=== PATIENT | male | born 1940 | race Native Hawaiian/Other Pacific Islander ===

== ENCOUNTER 2018-08-24 10:37 | Inpatient (IN) | payer OTHER, BC ==
[~2018-08-24] VITALS: Ht 190.5 cm; Wt 92.6 kg
[2018-08-24] VITALS (12 sets, daily range): BP systolic 131–182; BP diastolic 63–97; TEMP 97.5–98.5; Ht 190.5 cm; Wt 92.6 kg
[2018-08-24] MEDS ORDERED: ATEN25TA21 PO (11:00)
[2018-08-24] MEDS ORDERED: ALPR0.5T24 PO (11:00)
[2018-08-24 11:45] LABS: POTASSIUM 4.2 mmol/L (3.6-5.2)
[2018-08-24 11:47] LABS: PLATELET COUNT 211 K/uL (142-355)
[2018-08-25] VITALS: BP 119/58; TEMP 97.4
[2018-08-25 04:00] VITALS: BP 113/64; TEMP 97.7
[2018-08-25 09:39] LABS: PLATELET COUNT 201 K/uL (142-355)
[2018-08-25 10:00] LABS: POTASSIUM 3.5 mmol/L (3.6-5.2)
[2018-08-25 16:04] VITALS: BP 132/75; TEMP 98
[2018-08-26] VITALS (7 sets, daily range): BP systolic 118–145; BP diastolic 58–83; TEMP 97.5–98.2
[2018-08-26 06:08] LABS: PLATELET COUNT 195 K/uL (142-355)
[2018-08-27 00:38] VITALS: BP 130/72; TEMP 98.3
[2018-08-27 04:11] VITALS: BP 131/71; TEMP 98
[2018-08-27 06:24] LABS: POTASSIUM 3.8 mmol/L (3.6-5.2)
[2018-08-27 06:51] LABS: PLATELET COUNT 210 K/uL (142-355)
[2018-08-27 08:18] VITALS: BP 147/80; TEMP 97.7
[2018-08-27] MEDS ORDERED: LEVAQUIN250 MG PO (10:06)
[2018-08-27] MEDS ORDERED: IPRAAER INH (10:06)
[2018-08-27] MEDS ORDERED: MEDROL DOSEPAK4 MG PO (10:08)
== END 2018-08-27 10:45 | disposition home or self-care (01) | DRG 178 ==
LOC: ED 10:37 → MED/SURG 12:30
PROVIDERS: ADMIT Family Medicine
DX: J15.1 Pneumonia due to Pseudomonas (principal); J44.0 Chronic obstructive pulmonary disease with (acute) lower respiratory infection; J44.1 Chronic obstructive pulmonary disease with (acute) exacerbation; E78.49 Other hyperlipidemia; I10 Essential (primary) hypertension; G47.8 Other sleep disorders; R09.02 Hypoxemia
CPT/HCPCS: 36415; 36600; 80053; 81000; 82805; 85027; 87070; 87077; 87186; 87205; 94640; 94664; 94760; 96374; 99284; J1650; J1956; J2920; J2930; J3490

== ENCOUNTER 2019-07-16 19:18 | Emergency (ER) | payer OTHER, BC ==
[~2019-07-16] VITALS: Ht 190.5 cm; Wt 92.5 kg
[~2019-07-16 19:18] MED LIST: ALPR0.5T24 PO; ATEN25TA21 PO; IPRAAER INH; LEVAQUIN250 MG PO; MEDROL DOSEPAK4 MG PO
[2019-07-16 19:25] VITALS: BP 125/71; TEMP 97.5
== END 2019-07-16 19:30 | disposition home or self-care (01) ==
LOC: ED 19:18
DX: I10 Essential (primary) hypertension (principal)
CPT/HCPCS: 99281

== ENCOUNTER 2021-01-12 19:27 | Emergency (ER) | payer OTHER, BC ==
[~2021-01-12] VITALS: Ht 188 cm; Wt 81.6 kg
[2021-01-12 20:55] LABS: PLATELET COUNT 173 K/uL (142-355)
[2021-01-12 21:05] LABS: POTASSIUM 4.5 mmol/L (3.6-5.2); SODIUM 133 mmol/L (136-145)
[2021-01-12 23:10] VITALS: BP 122/65; TEMP 98
== END 2021-01-12 23:10 | disposition home or self-care (01) ==
LOC: ED 19:27
PROVIDERS: Family Medicine
DX: J44.1 Chronic obstructive pulmonary disease with (acute) exacerbation (principal); J32.8 Other chronic sinusitis; E87.1 Hypo-osmolality and hyponatremia
CPT/HCPCS: 36415; 80053; 82550; 84484; 85027; 93005; 94664; 96365; 99284; J0696

== ENCOUNTER 2021-02-14 09:58 | Outpatient (CLI) | payer BC | END 2021-02-14 19:09 | disposition home or self-care (01) | LOC: RAD 09:58 | PROVIDERS: ATTEND Nurse Practitioner Family | DX: J42 Unspecified chronic bronchitis (principal) ==

== ENCOUNTER 2021-02-26 13:33 | Outpatient (CLI) | payer OTHER, BC ==
[2021-02-26 13:56] LABS: POTASSIUM 5.1 mmol/L (3.6-5.2); SODIUM 133 mmol/L (136-145)
[2021-02-26 14:05] LABS: PLATELET COUNT 198 K/uL (142-355)
== END 2021-02-26 20:39 | disposition home or self-care (01) ==
LOC: EDBD 13:33 → CT 13:33
PROVIDERS: ATTEND Nurse Practitioner Family
DX: R06.09 Other forms of dyspnea (principal)
CPT/HCPCS: 80053; 82550; 82553; 83880; 84484; 85007; 85027; 85379

== ENCOUNTER 2021-03-04 07:55 | Outpatient (CLI) | payer OTHER, BC | END 2021-03-04 22:35 | disposition home or self-care (01) | LOC: RESP 07:55 | PROVIDERS: ATTEND Nurse Practitioner Family | DX: R06.09 Other forms of dyspnea (principal); J44.9 Chronic obstructive pulmonary disease, unspecified ==

== ENCOUNTER 2021-05-18 18:42 | Emergency (ER) | payer OTHER, BC ==
[~2021-05-18] VITALS: Ht 188 cm; Wt 81.6 kg
== END 2021-05-18 19:46 | disposition expired ==
LOC: ED 18:42
DX: I46.9 Cardiac arrest, cause unspecified (principal); J44.9 Chronic obstructive pulmonary disease, unspecified; I10 Essential (primary) hypertension
CPT/HCPCS: 96374; 96375; 96376; 99291; J0171; J0461